=== PATIENT | male | born 1995 | race Two or more races ===

== ENCOUNTER 2017-12-31 15:39 | Emergency (ER) | payer SELFPAY ==
[~2017-12-31] VITALS: Ht 170.2 cm; Wt 70.0 kg
[2017-12-31] MEDS ORDERED: SODIUM CHLORIDE 0.9% 1,000 ML IV ONE (15:58)
[2017-12-31] MEDS ORDERED: NALOXONE HCL 0.4 MG/ML 1ML VIAL IV ONE ×2 (16:45→17:00)
[2017-12-31 16:50] LABS: BASOPHILS % 0.2 % (0.0-2.0); EOSINOPHILS % 2.5 % (0.0-5.0); HEMATOCRIT. 48.8 % (42.0-52.0); HEMOGLOBIN. 16.6 g/dL (14.0-18.0); LYMPHOCYTES % 25.9 % (20.0-50.0); MEAN CORPUSCULAR HEMOGLOBIN 30.7 pg (28.0-32.0); MEAN CORPUSCULAR VOLUME 90.4 fL (80.0-94.0); MEAN PLATELET VOLUME 9.9 fl (7.4-10.4); MONOCYTES % 4.7 % (2.0-8.0); NEUTROPHILS % 66.7 % (40.0-76.0); PLATELET 202 x1000/uL (130-400)
[2017-12-31 16:54] LABS: CHLORIDE 106 mEq/L (98-107)
[2017-12-31 16:59] LABS: ETHANOL BLOOD 136 mg/dL
[2017-12-31] MEDS ORDERED: NALOXONE HCL 1 MG/ML 2ML VIAL IV ONE (17:15)
[2017-12-31 17:42] LABS: *AMPHETAMINES SCREEN URINE NEGATIVE (NEGATIVE); *BARBITURATES SCREEN URINE NEGATIVE (NEGATIVE); *BENZODIAZEPINES SCREEN URINE NEGATIVE (NEGATIVE)
[2017-12-31 17:43] LABS: *COCAINE SCREEN URINE NEGATIVE (NEGATIVE); CANNABINOID URINE SCREEN NEGATIVE (NEGATIVE); METHADONE URINE SCREEN NEGATIVE (NEGATIVE); OPIATES URINE SCREEN NEGATIVE (NEGATIVE); PHENCYCLIDINE URINE SCREEN NEGATIVE (NEGATIVE)
[2017-12-31 23:40] VITALS: BP 123/64
== END 2017-12-31 23:45 | disposition home or self-care (01) ==
LOC: ER 15:39
DX: T51.0X1A Toxic effect of ethanol, accidental (unintentional), initial encounter (principal); T50.901A Poisoning by unspecified drugs, medicaments and biological substances, accidental (unintentional), initial encounter; G92 Toxic encephalopathy; R03.0 Elevated blood-pressure reading, without diagnosis of hypertension; Y90.6 Blood alcohol level of 120-199 mg/100 ml; Y92.018 Other place in single-family (private) house as the place of occurrence of the external cause
CPT/HCPCS: 36415; 70450; 80053; 80305; 85025; 96361; 96374; 99285; G0482; J2310; J7030